=== PATIENT | female | born 1990 | race Asian ===

== ENCOUNTER 2017-12-15 04:18 | Inpatient (IN) | payer OTHER ==
[2017-12-15 05:56] LABS: HEMATOCRIT 39.2 % (36.0-47.0); HEMOGLOBIN 13.4 g/dl (12.0-16.0); MEAN CORPUSCULAR HEMOGLOBIN 31.1 pg (27.0-33.0); MEAN CORPUSCULAR HGB CONC 34.2 g/dl (32.0-36.5); PLATELET COUNT, AUTOMATED 182 10^3/uL (150-450); RED BLOOD COUNT 4.31 10^6/uL (4.00-5.40); RED CELL DISTRIBUTION WIDTH 12.5 % (11.5-14.5)
[2017-12-15] MEDS: LACTATED RINGER'S 1000 ML IV (06:16)
[2017-12-15 06:19] LABS: AMPHETAMINES URINE REFLEX NEGATIVE (NEGATIVE); BARBITURATES URINE REFLEX NEGATIVE (NEGATIVE); BENZODIAZEPINES URINE REFLEX NEGATIVE (NEGATIVE); CANNABINOIDS URINE REFLEX NEGATIVE (NEGATIVE); COCAINE METABOLITE URINE REFLE NEGATIVE (NEGATIVE); METHADONE URINE REFLEX NEGATIVE (NEGATIVE); OPIATES URINE REFLEX NEGATIVE (NEGATIVE); PHENCYCLIDINE URINE REFLEX NEGATIVE (NEGATIVE)
[2017-12-15] MEDS: LR 1,000 ML IV (08:58)
[2017-12-15] MEDS: PRENATAL VITAMINS CHEWABLE TABLET PO (09:00)
[2017-12-15] MEDS: OXYTOCIN DRIP 30 UNITS in APPROPRIATE DILUENT 1 EA IV (09:49)
[2017-12-15] MEDS ORDERED: METHYLERGONOVINE MALEATE 0.2 MG/ML VIAL (J2210) As Ordered (12:39)
[2017-12-15] MEDS ORDERED: DIBUCAINE 1% OINTMENT 30GM TOP (12:45)
[2017-12-15] MEDS ORDERED: METHYLERGONOVINE MALEATE 0.2 MG TAB PO (12:45)
[2017-12-15] MEDS ORDERED: DOCUSATE SODIUM 100 MG CAP PO ×2 (12:45)
[2017-12-15] MEDS: IBUPROFEN 600 MG TAB PO (13:38)
[2017-12-15] MEDS ORDERED: ACETAMINOPHEN TAB 650MG DOSE (2X325MG) PO (14:15)
[2017-12-15] MEDS: MEASLES,MUMPS,RUBELLA VACCINE INJ (MMR-II) (90707) SC (15:35)
[2017-12-15] MEDS: RHOGAM 300 MCG (1500 IU) INJ (J2790) IM (15:35)
[2017-12-16] MEDS: IBUPROFEN 600 MG TAB PO (09:00)
[2017-12-16] MEDS: PRENATAL VITAMINS CHEWABLE TABLET PO (09:00)
== END 2017-12-16 17:15 | disposition home or self-care (01) | DRG 775 ==
LOC: M LDO 04:18 → M LDI 06:10 → M OBS 15:15
PROVIDERS: Obstetrics & Gynecology
PROC: 10E0XZZ Delivery of Products of Conception, External Approach (ICD-10-PCS; principal; 2017-12-15)
PROC: 10907ZC Drainage of Amniotic Fluid, Therapeutic from Products of Conception, Via Natural or Artificial Opening (ICD-10-PCS; 2017-12-15)
DX: O76 Abnormality in fetal heart rate and rhythm complicating labor and delivery (principal); O62.3 Precipitate labor; Z3A.39 39 weeks gestation of pregnancy; Z37.0 Single live birth

== ENCOUNTER 2019-12-15 18:45 | Emergency (ER) | payer OTHER ==
[~2019-12-15] VITALS: Ht 152.4 cm; Wt 56.4 kg
[~2019-12-15 18:45] MED LIST: COLA100C5 PO; DIBU10OI TOP; MAPA500T2 PO; MOTR200T44 PO; MULTIVIT OR; PRENTAB9 PO; TYLE325T5 PO
[2019-12-15] MEDS ORDERED: BENZOCAINE 20% GEL 9GM TUBE (ANBESOL MAX STRENGTH) TOP ONE (19:15)
[2019-12-15] MEDS ORDERED: LIDOCAINE W/EPINEPHRINE 1% 20ML VIAL SC ONE (19:15)
[2019-12-15] MEDS ORDERED: BUPIVACAINE HCL 0.5% 10 ML VIAL SC ONE (19:15)
[2019-12-15] MEDS ORDERED: PENICILLIN V POTASSIUM 500 MG TAB PO ONE (19:30)
[2019-12-15] MEDS ORDERED: IBUP80TA PO (19:44)
[2019-12-15] MEDS ORDERED: PENI500T PO (19:44)
[2019-12-15] MEDS ORDERED: PERC5TAB12 PO ×2 (19:44→19:46)
[2019-12-15] MEDS ORDERED: PERCOCET 5MG/325MG TAB PO ONE ×2 (19:45→20:15)
[2019-12-15 19:52] VITALS: BP 144/81
[2019-12-15] MEDS ORDERED: ACETAMINOPHEN 325 MG TAB PO ONE (20:00)
== END 2019-12-15 20:23 | disposition home or self-care (01) ==
LOC: M ED 18:45
DX: S02.5XXA Fracture of tooth (traumatic), initial encounter for closed fracture (principal); K04.7 Periapical abscess without sinus; Y92.9 Unspecified place or not applicable; Y93.9 Activity, unspecified; Y99.9 Unspecified external cause status

== ENCOUNTER 2021-04-05 08:56 | Inpatient (IN) | payer OTHER ==
[2021-04-05] VITALS (13 sets, daily range): BP systolic 113–146; BP diastolic 63–91
[~2021-04-05] VITALS: Ht 152.4 cm; Wt 84.0 kg
[~2021-04-05 08:56] MED LIST changes: -DIBU10OI TOP; +DIBU28OI2 TOP; +IBUP80TA PO; +PENI500T PO; +PERC5TAB12 PO
[2021-04-05] MEDS: PRENATAL VITAMINS CHEWABLE TABLET PO SCH (09:00)
[2021-04-05] MEDS ORDERED: OXYTOCIN DRIP 30 UNITS in IV 1 EA IV PRN (09:20)
[2021-04-05] MEDS ORDERED: LIDOCAINE 1% MDV 20ML VIAL INFIL PRN (09:20)
[2021-04-05] MEDS ORDERED: PRENTAB9 PO (09:27)
--- NOTE | 2021-04-05 09:45 | HPEPDOC ---
Obstetrical History & Physical General Date of Admission April 05, 2021 at 08:56 History of Present Illness Pt presents with c/o labor contractions and SROM clear at 0800 Chief Complaint: Contractions, term, LOF, term Information Provided By: Patient Age: 30 : 5 Term: 4 Pre-term: 0 Abortions: 0 Livin Care Care: Good Care Dating Final EDC: April 13, 2021 Final EDC for Daily Update: April 13, 2021 Final EDC by: LMP LMP: Jul 22, 2020 EGA at Admission: 38 (+6) Antepartum Course Diagnos(e)s Varicella NI Height (inches): 60 Pre- weight (lbs.): 150 Admission Weight (lbs.): 185 Change in Weight (lbs.): 25 Past Medical History Past Obstetrical History : Past Obstetrical History: Multigravida ( at term x4: 05/14/2012, 06/20/2014, 01/28/2016, 12/15/2017) Type of Delivery: Spontaneous Vaginal Del. 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: Abnormal Pap (with colposcopy-March, April 2020-NILM, HPV-) Past Medical History Medical History denies Surgical History: Denies/None Family History Significant Family History: Diabetes (mother, MGM), Hypertension (father, PGF) Social History Marital Status: Family situation: Spouse/partner home Psychosocial History: No pertinent psych hx * Smoker: non-smoker Alcohol: Denies Drugs: denies Abuse Violence Screening Have you been hit/kicked/slapp: No Have you been sexually assault: No Imunizations Tdap status: current Allergies Coded Allergies: No Known Allergies (Verified Allergy, Unknown, 12/15/19) Medications Scheduled Docusate Sodium (Colace) 100 Mg Cap, 100 MG PO DAILY Penicillin V Potassium (Penicillin V Potassium) 500 Mg Tablet, 1 TAB PO QID No.137/Iron/Folic Acd ( Vitamin Tablet) 1 Tab Tab, 1 TAB PO DAILY Scheduled PRN Ibuprofen (Motrin Ib) 200 Mg Tab, 600 MG PO for PAIN Ibuprofen (Ibuprofen) 800 Mg Tablet, 800 MG PO Q8HP PRN for PAIN Oxycodone HCl/Acetaminophen (Percocet 5-325 mg Tablet) 1 Each Tablet, 1 TAB PO Q6H PRN for PAIN Miscellaneous Medications Acetaminophen (Mapap) 500 Mg Tab, 650 MG PO for PAIN OR FEVER Dibucaine (Dibucaine) 1 % Oin, 1 % TOP Physical Examination Physical Examination GENERAL: Alert and oriented times three. BREAST: . ABDOMEN: Gravid and non-tender to touch. FETUS: Is vertex (VTX) by sterile vaginal examination (SVE), fetus is vertex (VTX) by Deny. HEART RATE: Regular rate and rhythm. LUNGS: Clear to auscultation (CTA). EXTREMITIES: +3 bilateral pedal edema. No clonus. Deep tendon reflexes (DTRs) + 2. Pertinent Laboratoy Data Blood Type: O+ RBC Antibody Screen: Negative HIV: Negative Hepatitis B: Negative Rapid Plasma Reagin: Nonreactive Rubella: Immune Varicella: Nonreactive Chlamydia/Gonorrhea: Negative Group B Streptococcus: Negative Cystic Fibrosis: Negative Glucose Tolerance Test: 98 Anatomy Ultrasound Ultrasound Date: Nov 30, 2020 Placenta Location: Anterior Normal Anatomy: Yes Placenta Previa: No Estimated Weight (grams): 375 Steroid Therapy Steroid Therapy: No Vaginal Examination Dilation: 7 cm Effacement: 80% Station: -2 Cervical Consistency: Soft Cervical Position: Middle Presentation: Cephalic presentation Position: Vertex (occiput) Assessment Heart Rate (FHR): 150 Variability: Moderate Accelerations: Positive Decelerations: None Tocometer Contractions: Yes (2-4) Duration: greater than 60 seconds Strength: palpated as moderate, resting tone palp/soft Multi-drug resistant Organism: No history of MDRO Assessment/Plan Assessment Lizeth is a 30-year-old (G)5 para (P)4-0-0-4 at 38+6 weeks by 12-week ultrasound. Presents to Labor and Delivery (L&D) for c/o SROM clear 0800 and labor at term. Plan Admit and orient. 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 Diet: clear. Group B Streptococcus (GBS) negative. Labs and intravenous (IV) per unit protocol. Saline lock. Anticipate [normal spontaneous delivery ()]. C-S as appropriate. WILL BARRERA CNM April 05, 2021 09:45
[2021-04-05 10:15] LABS: HEMATOCRIT 41.6 % (36.0-47.0); MEAN CORPUSCULAR HEMOGLOBIN 30.7 pg (27.0-33.0); MEAN CORPUSCULAR HGB CONC 33.7 g/dl (32.0-36.5); MEAN CORPUSCULAR VOLUME 91.2 fl (80.0-96.0); PLATELET COUNT, AUTOMATED 209 10^3/uL (150-450); RED BLOOD COUNT 4.56 10^6/uL (4.00-5.40); WHITE BLOOD COUNT 12.1 10^3/uL (4.0-10.0)
--- NOTE | 2021-04-05 11:50 | IPNPDOC ---
Obstetrical Progress Note Date of Service April 05, 2021 Subjective C/o increased pressure with contractions Objective Vital Signs Date Time Temp Pulse Resp B/P (MAP) Pulse Ox O2 Delivery O2 Flow Rate FiO2 04/05/21 09:03 98.4 115 20 139/91 (107) Assessment Heart Rate (FHR): 150 Variability: Moderate Accelerations: Positive Decelerations: Early Heart Rate Tracing: Category I Tocometer Contractions: Yes Frequency: every 1-3 min. Duration: greater than 60 seconds Strength: palpated as strong Sterile Vaginal Examination Dilation: 9 cm Effacement (%): 100% Station: 0 Cervical Consistency: Soft Cervical Position: Middle Postion/Presentation: Cephalic presentation Assessment and Plan Age: 30 : 5 Term: 4 Pre-term: 0 Abortions: 0 Livin EGA at Admission: 38 (+6) Status: Reassuring Group B Streptococcus: Negative Anticipate: Vaginal Delivery Additional Comments saline lock, continuous efm x2, monitor for change in or maternal status, encourage maternal movement, anticipate vaginal delivery WILL BARRERA CNM April 05, 2021 11:50
[2021-04-05] MEDS ORDERED: OXYTOCIN INJ 10 UNITS/ML VIAL (J2590) As Ordered ONE (12:10)
[2021-04-05] MEDS ORDERED: OXYTOCIN INJ 10 UNITS/ML VIAL (J2590) IM ONE (12:15)
[2021-04-05] MEDS ORDERED: DIBUCAINE 1% OINTMENT 30GM TOP PRN (12:30)
[2021-04-05] MEDS ORDERED: DOCUSATE SODIUM 100MG CAPSULE PO PRN (12:30)
[2021-04-05] MEDS ORDERED: RHOGAM 300 MCG (1500 IU) INJ (J2790) IM SCH (12:30)
[2021-04-05] MEDS ORDERED: MEASLES,MUMPS,RUBELLA VACCINE INJ (MMR-II) (90707) SC SCH (12:30)
[2021-04-05] MEDS ORDERED: ACETAMINOPHEN TAB 650MG DOSE (2X325MG) PO PRN (12:30)
--- NOTE | 2021-04-05 12:41 | DNPDOC ---
[facility] Delivery Note Delivery Note DATE OF DELIVERY: 05Apr2021 PREDELIVERY DIAGNOSIS: 38-6/7 weeks' gestation and labor. POST DELIVERY DIAGNOSIS: Delivered. PROCEDURE: Spontaneous vaginal delivery. SPINNER HYDRAULIC: Bita Barrera ANESTHESIA: none. ESTIMATED BLOOD LOSS: 100 mL. FINDINGS: 6 pound 7 ounce female infant, Score 8/9, nuchal cord times 2. DELIVERY SUMMARY: Patient is a 30-year-old 5 now para 5-0-0-5 who was admitted to labor and delivery for active labor with SROM clear on 05Apr2021. [place] c/o continued pressure with contractions and was at AL/C/0. She was coached to push while the lip was reduced and progressed to with 2 pushes. The head delivered in OA and restituted to [place]. A left compound hand and tight nuchal cord x2 were noted after delivery of the head. The right anterior shoulder delivered easily followed quickly by the posterior shoulder and corpus. The nuchal cord was manually reduced after delivery and th e female placed on the maternal abdomen where she was dried and stimulated to cry. The cord was clamped x2 after pulsation ceased and cut by the FOB. The Placenta delivered spontaneously in [place]ctor presentation with minimal bleeding Pitocin infusion was initiated per protocol and an infiltration at the IV site was quickly noted. The infusion was discontinued and 10u IM pi tocin given. Examination revealed an intact perineum. Mother and baby entered the recovery phase in stable condition, skin to skin, with initiated. BITA BARRERA CNM April 05, 2021 12:41
[2021-04-05] MEDS: IBUPROFEN 800 MG TAB PO PRN ×2 (13:11→15:28)
[2021-04-05] MEDS: METHYLERGONOVINE MALEATE 0.2 MG TAB PO PRN (20:31)
[2021-04-05] MEDS ORDERED: ceFAZolin SOD 2 GM in IV 1 EA IV ONE (22:25)
[2021-04-05] MEDS ORDERED: LR 1,000 ML IV SCH (22:30)
--- NOTE | 2021-04-05 22:42 | IPNPDOC ---
Progress Note Date of Service: April 05, 2021 Progress Note I was called to the room with report that Katherine passed a large clot while ambulating and soaked through a august pad. Vital signs were normal. She was given a dose of 0.2mg PO methergine. In the room Katherine was laying in bed. Uterus was boggy and at U+1. Bedside US demonstrated a >4cm endometrial stripe. Bimanual exam resulted in a large amount of blood and clot. Uterine sweep was performed. More blood and clot resulted. Uterine fundus was then firm at U-2. Bleeding slowed. 800 mcg [place] cytotec was placed. Uterus remained firm 30 minutes later. Total blood loss by weight was ~800ml. Plan for stat CBC now and 500ml LR bolus. Order placed to insert a martinez catheter. Will give dose of Ancef for uterine sweep. 2nd IV site placed. Continue PO methergine series and monitor closely. Should bleeding start again will take to the OR for exploration and potential bakri balloon placement. Will transfuse as necessary. All patient questions answered. Khris VS, I&O, 24H, Mikey Vital Signs/I&O Vital Signs Date Time Temp Pulse Resp B/P (MAP) Pulse Ox O2 Delivery O2 Flow Rate FiO2 04/05/21 21:20 98.7 109 19 125/77 (93) 100 04/05/21 20:10 Room Air Laboratory Data 24H LABS Laboratory Tests 2 04/05/21 09:30: Nucleated Red Blood Cells % (auto) 0.0, Syphilis Serology NONREACTIVE 04/05/21 09:52: Serology Scanned Report Hepatitis B Testing CBC/BMP Laboratory Tests 04/05/21 09:30 LATIA RANGEL DO April 05, 2021 22:42
[2021-04-05 22:52] LABS: HEMATOCRIT 36.9 % (36.0-47.0); HEMOGLOBIN 12.4 g/dl (12.0-15.5); MEAN CORPUSCULAR HEMOGLOBIN 31.8 pg (27.0-33.0); MEAN CORPUSCULAR HGB CONC 33.6 g/dl (32.0-36.5); MEAN CORPUSCULAR VOLUME 94.6 fl (80.0-96.0); PLATELET COUNT, AUTOMATED 199 10^3/uL (150-450); WHITE BLOOD COUNT 12.8 10^3/uL (4.0-10.0)
[2021-04-06] MEDS: METHYLERGONOVINE MALEATE 0.2 MG TAB PO PRN ×3 (00:27→08:08)
[2021-04-06] MEDS: IBUPROFEN 800 MG TAB PO PRN (00:28)
[2021-04-06 02:00] VITALS: BP 124/65
[2021-04-06] MEDS ORDERED: LR 1,000 ML IV SCH (03:00)
[2021-04-06 06:00] VITALS: BP 111/63
--- NOTE | 2021-04-06 06:07 | IPNPDOC ---
Progress Note Date of Service: April 06, 2021 Progress Note Patient seen this morning. Katherine reports feeling well this morning. She is tolerating PO without issues. She hasn't been ambulatory yet. She denies any pain, fevers/chills, or n/v. Total EBL from delivery and PP hemorrhage ~1000 ml. Vitals - VSS, afebrile, normotensive, non tachycardic General - AAOX3, laying in bed, NAD Abdomen - Fundus firm at U-2. No fundal tenderness. Extremities - No edema - Martinez bag draining clear/yellow urine at bedside urine output - appropriate, but borderline low H/H at 2236 on [id number]: 12.4/36.9 Kathernie is stable. Will re check CBC this AM. Plan for ambulation today. Once ambulatory we will remove her martinez catheter. Continue PO methergine series for 4 total doses. Continue routine care. All patient questions answered. Khris VS, I&O, 24H, Mikey Vital Signs/I&O Vital Signs Date Time Temp Pulse Resp B/P (MAP) Pulse Ox O2 Delivery O2 Flow Rate FiO2 04/06/21 02:00 98.3 97 18 124/65 (84) 99 Room Air I&O- Last 24 Hours up to 6 AM 04/06/21 06:00 Intake Total 10 ml Output Total 1393 ml Balance -1383 ml Laboratory Data 24H LABS Laboratory Tests 2 04/05/21 09:30: Nucleated Red Blood Cells % (auto) 0.0, Syphilis Serology NONREACTIVE 04/05/21 09:52: Serology Scanned Report Hepatitis B Testing 04/05/21 22:36: Nucleated Red Blood Cells % (auto) 0.0 CBC/BMP Laboratory Tests 04/05/21 09:30 04/05/21 22:36 LATIA RANGEL DO April 06, 2021 06:07
[2021-04-06 07:53] LABS: HEMOGLOBIN 11.2 g/dl (12.0-15.5); MEAN CORPUSCULAR HEMOGLOBIN 31.4 pg (27.0-33.0); MEAN CORPUSCULAR HGB CONC 32.9 g/dl (32.0-36.5); MEAN CORPUSCULAR VOLUME 95.2 fl (80.0-96.0); PLATELET COUNT, AUTOMATED 181 10^3/uL (150-450); RED BLOOD COUNT 3.57 10^6/uL (4.00-5.40); WHITE BLOOD COUNT 11.8 10^3/uL (4.0-10.0)
[2021-04-06] MEDS: PRENATAL VITAMINS CHEWABLE TABLET PO SCH (08:08)
[2021-04-06 10:00] VITALS: BP 123/61
[2021-04-06 14:00] VITALS: BP 99/53
[2021-04-06 18:00] VITALS: BP 101/60
[2021-04-06 22:00] VITALS: BP 110/67
[2021-04-07 02:00] VITALS: BP 115/53
[2021-04-07 05:53] VITALS: BP 110/55
--- NOTE | 2021-04-07 07:58 | DSES ---
DISCHARGE SUMMARY DATE OF ADMISSION: 04/05/2021 DATE OF DISCHARGE: 04/07/2021 HISTORY OF PRESENT ILLNESS/HOSPITAL COURSE: This 30-year-old 5, now para 5, admitted in spontaneous labor. Spontaneous vaginal delivery of female 6 pounds 7 ounces. Apgars of 8 and 9 at one and five minutes respectively. On her second day, we discussed phlebitis, cystitis, mastitis, endometritis, and cellulitis, diet, exercise, pain management, perineal and breast care. DISCHARGE PHYSICAL EXAMINATION: On discharge her blood pressure was 110/55, respirations 16, pulse 78, temperature 98.8. The rest of the examination unremarkable. Normocephalic, atraumatic. Neck with full range of motion. Pupils equal and reactive to light. Distal pulses symmetric. No evidence of DVT, PE, or superficial phlebitis. Chest was clear at bilateral bases with no wheezes or rhonchi. No CVA tenderness. Abdomen was soft with four quadrant bowel sounds noted. Uterus two below. Lochia moderate. Perineum intact. No rashes, lesions, or pruritus. No arthralgia or myalgias. No complaint of joint pain. No complaint of cough, wheeze, shortness of breath, or dyspnea on exertion. No nausea, vomiting, diarrhea, or constipation. No urgency or frequency. LABORATORY DATA: Admitting hemoglobin was 14.0, hematocrit 41.6, and platelets were 209,000. Discharge hemoglobin 11.2, hematocrit 34.0, and platelets were 181,000. In summary, I have a term gestation delivering a live female . The plans are to pickup her medications at [place] and a six week checkup at [facility]. All questions were answered, 20 minute discussion, and the patient was discharged improved.
[2021-04-07] MEDS: PRENATAL VITAMINS CHEWABLE TABLET PO SCH (10:27)
== END 2021-04-07 14:30 | disposition home or self-care (01) | DRG 806 ==
LOC: M LDI 08:56 → M OBS 14:58
PROVIDERS: ADMIT Registered Nurse; ATTEND Registered Nurse
PROC: 10E0XZZ Delivery of Products of Conception, External Approach (ICD-10-PCS; principal; 2021-04-05)
DX: O64.5XX0 Obstructed labor due to compound presentation, not applicable or unspecified (principal); Z37.0 Single live birth; O72.1 Other immediate postpartum hemorrhage; Z3A.38 38 weeks gestation of pregnancy; O69.1XX0 Labor and delivery complicated by cord around neck, with compression, not applicable or unspecified